=== PATIENT | female | born 1950 | race Caucasian/White ===

== ENCOUNTER → 2016-09-21 | Outpatient (CLI) | payer OTHER ==
--- NOTE | 2016-09-21 16:47 | DI ---
RIGHT WRIST WITH NAVICULAR VIEW, 09/21/2016 3:09 PM: Clinical History: Right wrist injury. Previous Exam: None at this facility. 4 views are submitted. There is no acute soft tissue, osseous, or joint abnormality. Reading: Normal right wrist exam.
== END ==
LOC: MOB RAD 15:10
PROVIDERS: ATTEND Physician Assistant Medical
DX: S69.91XA Unspecified injury of right wrist, hand and finger(s), initial encounter (principal); M79.641 Pain in right hand; W00.0XXA Fall on same level due to ice and snow, initial encounter
CPT/HCPCS: 73110

== ENCOUNTER → 2017-02-11 | Outpatient (CLI) | payer OTHER | LOC: MOB LAB 14:41 | PROVIDERS: ATTEND Nurse Practitioner | DX: E03.9 Hypothyroidism, unspecified (principal) | CPT/HCPCS: 36415; 84443 ==

== ENCOUNTER → 2017-04-13 | Outpatient (CLI) | payer OTHER ==
[2017-04-13 09:49] LABS: CHOL/HDL RATIO 3.17 RATIO (0-4.0); LDL CHOLESTEROL,CALCULATED 169.6 mg/dL
== END ==
LOC: LAB 09:15
PROVIDERS: ATTEND Nurse Practitioner
DX: E78.5 Hyperlipidemia, unspecified (principal)
CPT/HCPCS: 36415; 80061